=== PATIENT | female | born 1990 | race Caucasian/White ===

== ENCOUNTER 2020-08-06 04:04 | Emergency (ER) | payer MEDICAID ==
[~2020-08-06] VITALS: Ht 165.1 cm; Wt 63.5 kg
[2020-08-06 04:09] VITALS: BP 134/95
[2020-08-06] MEDS ORDERED: LIDOCAINE 2% 1000 MG/50 ML VIAL INJ ONE (04:30)
[2020-08-06] MEDS ORDERED: HYDROcodone/APAP 10/325 MG 1 TAB TAB PO ONE (05:30)
[2020-08-06] MEDS ORDERED: ACETAMINOPHEN EXTRA STRENGTH 500 MG TAB ONE (05:30)
[2020-08-06 06:29] VITALS: BP 134/95
== END 2020-08-06 06:30 | disposition home or self-care (01) ==
LOC: MED 04:04
DX: K04.7 Periapical abscess without sinus (principal); R68.84 Jaw pain
CPT/HCPCS: 99283; J2001

== ENCOUNTER 2020-08-07 19:35 | Emergency (ER) | payer MEDICAID ==
[~2020-08-07] VITALS: Ht 165.1 cm; Wt 62.6 kg
[2020-08-07 20:01] VITALS: BP 111/66
--- NOTE | 2020-08-07 20:03 | NUR ---
triaged and waiting in lobby.
--- NOTE | 2020-08-07 21:33 | NUR ---
PT TAKEN TO CHAIR B
--- NOTE | 2020-08-07 21:35 | NUR ---
SEE COMPLETE ASSESSMENT FOR FURTHER DETAILS.
--- NOTE | 2020-08-07 21:43 | NUR ---
Dr. Degroot examining patient.
[2020-08-07] MEDS ORDERED: CLINDAMYCIN 600 MG/4 ML VIAL IM ONE (21:55)
[2020-08-07 22:22] VITALS: BP 112/74
--- NOTE | 2020-08-07 22:22 | NUR ---
Patient discharged with v/s stable. Written and verbal after care instructions given and explained. Patient verbalized understanding. Ambulatory with steady gait. All questions addressed prior to discharge. Advised to follow up with PMD.
== END 2020-08-07 22:22 | disposition home or self-care (01) ==
LOC: MED 20:31
DX: K08.89 Other specified disorders of teeth and supporting structures (principal)
CPT/HCPCS: 96372; 99283; J3490

== ENCOUNTER 2022-11-19 18:04 | Emergency (ER) | payer MEDICAID, OTHER ==
[~2022-11-19] VITALS: Ht 167.6 cm; Wt 68.5 kg
[2022-11-19 18:10] VITALS: BP 144/97
--- NOTE | 2022-11-19 18:30 | NUR ---
32YO FEMALE PT C/O PALPITATIONS AND ARM "PAIN" X3DAYS. REPORTS SUDDEN ONSET AFTER STARTING RX [facility]. STATES PREVIOUS S/S 2 YEARS AGO AFTER STARTING SAME RX BUT WITH SHORTER ONSET. DENIES N/V/D, FEVER , CHILLS OR SOB. PT AAOX4, RESPIRATIONS EVEN AND UNLABORED.ON ONLINE MARKETER. HX:DEPRESSION NKA
--- NOTE | 2022-11-19 19:29 | NUR ---
REPORT GIVEN TO LUZ RAYO. TRANSFER OF CARE AT THIS TIME
--- NOTE | 2022-11-19 19:30 | NUR ---
Patient received on bed lying comfortably and awake. Alert and oriented x4. No acute distress. No complaints of pain or discomfort. Respirations even and unlabored. Patient stated she felt relieved and no episodes of palpitations compared before.
[2022-11-19 20:20] LABS: BASOPHILS % (AUTO) 0.5 % (0.0-2.0); EOSINOPHILS # (AUTO) 0.3 K/uL (0-0.4); EOSINOPHILS % (AUTO) 3.2 % (0.0-4.0); HEMATOCRIT 41.3 % (36-48); HEMOGLOBIN 13.5 g/dL (12.0-16.0); LYMPHOCYTES # (AUTO) 1.7 K/uL (2.5-16.5); LYMPHOCYTES % (AUTO) 21.9 % (20.5-51.1); MEAN CORPUSCULAR HEMOGLOBIN 28 pg (27-31); MEAN CORPUSCULAR HGB CONC 33 g/dL (33-37); MEAN CORPUSCULAR VOLUME 85.7 fL (80-94); MONOCYTES # (AUTO) 0.6 K/uL (0.8-1.0); MONOCYTES % (AUTO) 7.3 % (1.7-9.3); NEUTROPHILS # (AUTO) 5.3 K/uL (1.8-7.7); NEUTROPHILS % (AUTO) 67.1 % (42.2-75.2); PLATELET COUNT (AUTO) 204 K/uL (140-450); RED BLOOD CELL COUNT(AUTO) 4.82 MIL/uL (4.20-5.40); RED CELL DISTRIBUTION WIDTH 15.4 % (11.6-13.7); WHITE BLOOD COUNT (AUTO) 7.9 K/uL (4.8-10.8)
[2022-11-19 20:39] LABS: ALBUMIN 4.5 g/dL (3.4-5.0); ANION GAP 11.7 (8-16); ASPARTATE AMINOTRANSFERASE 17 U/L (15-37); CARBON DIOXIDE 26.7 mmol/L (21-32); CHLORIDE 103 mmol/L (98-107); CREATININE 0.8 mg/dL (0.6-1.3); GFR ARICAN-AMERICAN 107 mL/min (>90); GLUCOSE 97 mg/dL (74-106); MAGNESIUM 2.1 mg/dL (1.8-2.4); PHOSPHORUS 3.9 mg/dL (2.5-4.9); POTASSIUM 4.4 mmol/L (3.5-5.1); SODIUM SERUM 137 mmol/L (136-145); TOTAL BILIRUBIN 0.5 mg/dL (0.0-1.0); UREA NITROGEN, BLOOD 11 mg/dL (7-18)
[2022-11-19 21:24] VITALS: BP 127/77
== END 2022-11-19 21:24 | disposition home or self-care (01) ==
LOC: MED 18:04
DX: R07.89 Other chest pain (principal); R00.2 Palpitations; F32.A Depression, unspecified; F41.9 Anxiety disorder, unspecified; Z79.899 Other long term (current) drug therapy; Z98.890 Other specified postprocedural states
CPT/HCPCS: 36415; 80053; 83735; 84100; 84484; 85025; 93005; 99285